=== PATIENT | female | born 1980 | race Caucasian/White ===

== ENCOUNTER 2016-12-16 21:15 | Emergency (ER) | payer MEDICAID, OTHER ==
[~2016-12-16] VITALS: Ht 149.9 cm; Wt 74.0 kg
[~2016-12-16 21:15] MED LIST: LEVO125T; PREN1TAB49
[2016-12-16 21:32] VITALS: Ht 149.9 cm; Wt 74.0 kg
[2016-12-16] MEDS ORDERED: ACETAMINOPHEN 500 MG TAB PO STA (23:20)
--- NOTE | 2016-12-17 00:35 | ERD ---
ER Documentation Chief Complaint Date/Time DATE: 12/17/16 TIME: 00:34 Chief Complaint Pt reports bodyaches and fever started 2 days ago HPI This is a 36-year-old female presents to the ER with fever, body aches, cough, chest pain for the last 2 days. Patient states that cough is dry and constant. Her daughter is sick with similar symptoms at home. Chest pain is nonexertional and is worse whenever she coughs. Body aches are severe and constant. Patient has been taking Tylenol for her fever and body aches. Patient did not get her flu shot this year. ROS 12 point review of systems was done, all negative except per HPI. Medications Home Meds Active Scripts Dextromethorphan Hb-Promethazine Hcl (Promethazine DM Syrup) 473 Ml Syrup, 10 ML PO Q6H Y for COUGH, #4 OZ Prov:CHERELLEDARRON Sow 12/17/16 Ibuprofen* (Ibuprofen*) 600 Mg Tablet, 600 MG PO Q6 for 5 Days, TAB Prov:DARRON VILLARREAL 12/17/16 Reported Medications Vits W-Ca,Fe,Fa(<1MG) () 1 Tab Tablet 04/04/11 Levothyroxine Sodium* (Synthroid*) 125 Mcg Tablet 04/04/11 Allergies Allergies: Coded Allergies: No Known Allergy (Unverified Allergy, Unknown, 04/04/11) PMhx/Soc Hx Miscellaneous Medical Probl: Yes (THYROID: HASHIMOTOS DISEASE) Hx Alcohol Use: No Hx Substance Use: No Hx Tobacco Use: No Physical Exam Vitals Vital Signs Date Time Temp Pulse Resp B/P Pulse Ox O2 Delivery O2 Flow Rate FiO2 12/16/16 21:32 97.8 91 18 124/88 98 Physical Exam GENERAL: The patient is well-developed, well-nourished, in no acute distress. NECK: Cervical spine is non tender with no step off. Supple, no nuchal rigidity HEENT: Atraumatic. Pupils equal, round and reactive to light. Extraocular muscles are grossly intact. Conjunctivae pink, no discharge. Bilateral tympanic membranes are clear with no evidence of erythema, effusion or dulling of the light reflex. Tonsilar erythema with no exudates or uvular deviation. Clear rhinorrhea. RESPIRATORY: Clear to auscultation bilaterally. There are no rales, wheezes or rhonchi. HEART: Regular rate and rhythm. No murmurs, clicks, rubs or gallops. EXTREMITIES: No clubbing or cyanosis. Full range of motion. Grossly neurovascularly intact. NEUROLOGIC: Alert and oriented. Cranial nerves II through XII are intact. SKIN: There is no rash. The skin is warm and dry. Results 24 hrs Current Medications Medications (Trade) Dose Ordered Sig/Ruth Route PRN Reason Start Time Stop Time Status Last Admin Dose Admin Acetaminophen (Tylenol Tab) 1,000 mg ONCE STAT PO 12/16/16 23:20 12/16/16 23:21 DC 12/17/16 00:55 Procedures/MDM EKG 77bpm no st elevation, no t wave inversion. Differential diagnosis includes but is not limited to; Viral URI, allergic rhinitis, bronchitis, pertussis,pneumonia. Patient likely has influenza virus as her daughter tested positive. Clinical suspicion for pneumonia is low as patient appears well, is not hypoxic or in any respiratory distress. Additionally, patients physical examination is benign. Plan was discussed with patient they understand and agree. Patient needs to follow up with PCP in 1-2 days or return to ER sooner if symptoms worsen. Departure Diagnosis: Primary Impression: Influenza-like symptoms Condition: Stable DARRON VILLARREAL Dec 17, 2016 00:35
--- NOTE | 2016-12-17 01:16 | RADRPT ---
PROCEDURE: CHEST - 1 VIEW CLINICAL INDICATION: 36-year-old female with chest pain. TECHNIQUE: A single frontal AP view of the chest was performed. The images were reviewed on a PAC S workstation. COMPARISON: None. FINDINGS: The cardiomediastinal silhouette has a normal appearance. There is a shallow inspiration. There is n o evidence for an infiltrate. There is no evidence for congestive heart failure. There is no eviden ce for pneumothorax. The osseous structures are intact. IMPRESSION: No evidence for active cardiopulmonary disease. .Nakul Oconnell MD, MD Date Time Electronically viewed and signed by .Nakul Oconnell MD, on 12/17/2016 01:15 .M/
[2016-12-17] MEDS ORDERED: IBUP-1542 PO (01:46)
[2016-12-17] MEDS ORDERED: D-ME473S18 PO (01:46)
[2016-12-17 02:05] VITALS: BP 122/82; PULSE 72; RESP 18; TEMP 97.8
== END 2016-12-17 02:05 | disposition home or self-care (01) ==
LOC: FTE 21:15
DX: R50.9 Fever, unspecified (principal); R05 Cough; R07.9 Chest pain, unspecified
CPT/HCPCS: 71010; 87400; 93005; Z7502; Z7610

== ENCOUNTER 2018-02-11 21:43 | Emergency (ER) | END 2018-02-12 03:20 | disposition home or self-care (01) ==

== ENCOUNTER 2019-05-27 21:48 | Emergency (ER) | payer OTHER ==
[~2019-05-27] VITALS: Ht 157.5 cm; Wt 78.5 kg
[~2019-05-27 21:48] MED LIST changes: +D-ME473S18 PO; +FAMO-96 PO; +IBUP-1542 PO; +NAPR-985 PO
[2019-05-27 22:04] VITALS: BP 112/72; PULSE 88; RESP 19; Ht 157.5 cm; Wt 78.5 kg
[2019-05-28] MEDS ORDERED: FAMO-96 PO (00:25)
[2019-05-28] MEDS ORDERED: BEN25 PO (00:25)
--- NOTE | 2019-05-28 00:29 | ERD ---
ER Documentation Chief Complaint Chief Complaint RIGHT ARM BUG BITE HPI 38-year-old female presents with complaint of insect bite. States she has been at home yesterday when she felt she was bit by a type of insect. Since that time and had swelling and redness to area. With reports of persistent itchiness. She otherwise denies fevers, chills, shortness of breath, dyspnea, tongue swelling, diffuse rash or any other concerning symptoms. She has not tried any medications to help with symptoms. She denies any allergies to medication and denies history of anaphylactic type reaction. ROS All systems reviewed and are negative except as per history of present illness. Medications Home Meds Active Scripts Famotidine* (Pepcid*) 20 Mg Tablet, 20 MG PO BID for 4 Days, TAB Prov:SEFERINO BRADFORD PA-C 05/28/19 Diphenhydramine Hcl* (Benadryl*) 25 Mg Cap, 25 MG PO Q6, #30 CAP Prov:SEFERINO BRADFORD PA-C 05/28/19 Famotidine* (Pepcid*) 20 Mg Tablet, 20 MG PO BID for 10 Days, #20 TAB Prov:RYAN,TRE 02/12/18 Naproxen* (Naprosyn*) 500 Mg Tablet, 500 MG PO BID PRN for PAIN AND/OR INFLAMMATION for 10 Days, #20 TAB Prov:RYAN,TRE 02/12/18 Dextromethorphan Hb-Promethazine Hcl (Promethazine DM Syrup) 473 Ml Syrup, 10 ML PO Q6H PRN for COUGH, #4 OZ Prov:CHERELLE,DARRON C 12/17/16 Ibuprofen* (Ibuprofen*) 600 Mg Tablet, 600 MG PO Q6 for 5 Days, TAB Prov:CHERELLE,DARRON C 12/17/16 Reported Medications Vits W-Ca,Fe,Fa(<1MG) () 1 Tab Tablet 04/04/11 Levothyroxine Sodium* (Synthroid*) 125 Mcg Tablet 04/04/11 Allergies Allergies: Coded Allergies: No Known Allergy (Unverified Allergy, Unknown, 04/04/11) PMhx/Soc Medical and Surgical Hx: pt denies Surgical Hx Hx Miscellaneous Medical Probl: Yes (THYROID: HASHIMOTOS DISEASE) Hx Alcohol Use: No Hx Substance Use: No Hx Tobacco Use: No Smoking Status: Never smoker FmHx Family History: No diabetes, No coronary disease, No other Physical Exam Vitals Vital Signs Date Temp Pulse Resp B/P (MAP) Pulse Ox O2 O2 Flow FiO2 Time Delivery Rate 05/27/19 98.6 88 19 112/72 98 22:04 (85) Physical Exam I have reviewed the triage vital signs. Const: Well nourished, well developed, appears stated age Eyes: PERRL, no conjunctival injection HENT: NCAT, Neck supple without meningismus CV: RRR, Warm, well-perfused extremities RESP: CTAB, Unlabored respiratory effort GI: soft, non-tender, non-distended, no masses MSK: Forearm with palm size erythematous raised rash. Nontender, no fluctuance or induration. Area marked. Skin: Warm, dry. No rashes Neuro: grossly non focal Psych: Appropriate mood and affect. Procedures/MDM 38 yo female who presents with insect bite and localized allergic reaction with rash. Rash area marked. I have low suspicion for infection duke of affected area. She denies red flag respiratory type symptoms. Will discharge with symptomatic care and PMD follow-up. Strict return precautions explained in detail. DISPOSITION PLAN: We discussed follow up with the patient's primary care doctor within 24 to 48 hours. Patient counseled regarding my diagnostic impression and care plan. Prior to discharge all questions answered. Pt agrees with treatment plan and understands strict return precautions. Precautionary instructions provided including instructions to return to the ER if not improving or for any worsening or changing symptoms or concerns. Disclaimer: Inadvertent spelling and grammatical errors are likely due to EHR/dictation software use and do not reflect on the overall quality of patient care. Also, please note that the electronic time recorded on this note does not necessarily reflect the actual time of the patient encounter. Departure Diagnosis: Primary Impression: Insect bite Condition: Stable Patient Instructions: Insect Bites and Stings Additional Instructions: Call your primary care doctor TOMORROW for an appointment during the next 2-3 days.See the doctor sooner or return here if your condition worsens before your appointment time. SEFERINO BRADFORD PA-C May 28, 2019 00:29
== END 2019-05-28 01:10 | disposition home or self-care (01) ==
LOC: FTE 21:48
DX: S50.861A Insect bite (nonvenomous) of right forearm, initial encounter (principal); W57.XXXA Bitten or stung by nonvenomous insect and other nonvenomous arthropods, initial encounter; Y92.009 Unspecified place in unspecified non-institutional (private) residence as the place of occurrence of the external cause
CPT/HCPCS: 99283